=== PATIENT | male | born 1975 | race Caucasian/White ===

== ENCOUNTER 2023-11-06 03:33 | Emergency (ER) | payer OTHER, SELFPAY ==
[2023-11-06 03:35] VITALS: BP 126/84
[2023-11-06 04:50] VITALS: BMI 30.8
--- NOTE | 2023-11-06 04:58 | ED.GENMED ---
History of Present Illness
General
Chief Complaint: Back Pain
Source: patient
Exam Limitations: none
Time Seen by Provider: 11/06/23 04:52
Nursing documentation reviewed up to this point in time: agreed with
History of Present Illness
History of Present Illness:
This is a 48-year-old gentleman who has history of intermittent low back pain with acute lumbar sprain approximately 1 month ago, resolved with a course of prednisone and Flexeril.
Last night however he was wrestling with a friend and states he 'got flipped over onto his back' and developed abrupt severe left low back pain that has persisted throughout the night, unrelieved with 1 Flexeril at 1:30 AM. Left low back pain
occasionally shoots down his left posterior thigh. He denies weakness nor numbness, no saddle anesthesia, no difficulty moving her bowels or bladder.
He has driven himself to the ED.
He did note mild posterior neck discomfort which has resolved. No arm pain.
Past History
Past History
ED Past Medical History: GERD and Other (Chronic fatigue syndrome)
ED Past Surgical History: Other (Eye surgery)
Social History
Tobacco: Non-smoker
Alcohol: None
Drug: None
Living: with family
Employment: Employed
Family History
Family History: Other (Noncontributory)
Phy Exam
Physical Exam
Physical Exam:
GENERAL: 48-year-old gentleman appears his stated age. Sitting on the edge of the stretcher, resistant to move, appears in moderate distress related to pain. Easily communicative. Vital signs within normal limits.
EYE: anicteric
NECK: Supple, no midline bony tenderness. Full range of motion without difficulty nor pain. no significant adenopathy.
ENT: posterior pharynx is clear, oral mucosa is moist. No rhinorrhea.
CARDIAC: Regular rate and rhythm. no murmur.
LUNGS: Clear breath sounds bilaterally, no acute respiratory distress, no wheezes/rales/rhonchi
ABDOMEN: Soft, nondistended, without focal tenderness, no r/g, no cvat. normoactive BS.
BACK: No midline bony tenderness. There is moderate tenderness left lower lumbar paravertebral region with moderate palpable muscle spasm left lower lumbar region. Moderately restricted lumbar range of motion related to pain. There is no
tenderness to the SI joint bilaterally.
NEUROLOGICAL: Alert and oriented x3, no focal neuro deficits.
SKIN: Warm and dry, normal color, skin intact. No rash.
MUSCULOSKELETAL: No C/C/E. peripheral pulses are full and equal b/l. No palpable tenderness.
PSYCH: Normal and appropriate interaction.
Course
Orders/Labs/Results
Orders:
Orders
11/06/23 04:57
Ketorolac [Toradol] 60 mg IM NOW STA
Lumbar Spine Complete, 4 View [CR Lumbar Spine Comp Min 4 Vw*] Urgent
Comment:
Reason For Exam: acute left LBP after fall
11/06/23 06:08
Oxycodone/Acetaminophen [Percocet 5/325] 1 tablet PO NOW STA
diazePAM [Valium Injection] 10 mg IM NOW STA
Vital Signs
Initial and Last Documented VS:
Initial Vital Signs
Temp Pulse Resp BP Pulse Ox
97.8 F 80 24 126/84 100
11/06/23 03:35 11/06/23 03:35 11/06/23 03:35 11/06/23 03:35 11/06/23 03:35
Last Documented Vital Signs
Temp Pulse Resp BP Pulse Ox
97.8 F 58 18 133/93 95
11/06/23 03:35 11/06/23 06:38 11/06/23 06:38 11/06/23 06:38 11/06/23 06:38
MDM/Problems Addressed
Differential Diagnosis Includes:
Patient presents with acute left lower lumbar sprain/strain. Concern for occult fracture, acute sciatica.
No red flags in history nor exam.
Will give an IM dose of Toradol for pain and will check lumbar spine x-rays.
*Radiology
Radiology exam reviewed: preliminary read by ED provider (Lumbar spine film is unremarkable. No evidence of fracture.)
*Pulse Oximetry
Patient hypoxic: no
*Critical Care Note
Total Time (30-74mins, 75-104mins- exclusive of procedures): Not Applicable
Update Note
Update Note:
11/06/2023 0726 AM
Patient feeling improved after IM Toradol, Valium and an oral dose of Percocet.
Able to rest comfortably.
Lumbar spine x-ray is unremarkable.
Will discharge to home with recommendations to rest, apply local ice for the first 24 to 48 hours then switch to heat.
Will prescribe short course of diclofenac for pain as well as Percocet for moderate pain. Recommend he continue Flexeril at bedtime.
Prompt follow-up with PCP for recheck.
ED Attending Note
-
Portions of this chart may have been created with voice recognition software.� Occasional wrong word or��sound alike� substitutions may have occurred due to the inherent limitations of voice recognition software.
Discharge Plan
Departure
Patient Disposition: Home (Routine Discharge)
Date of Disposition: 11/06/23
Time of Disposition: 07:27
Patient with high blood pressure during this ER visit?: No
Condition: Good
Discharge Problem:
Acute lumbosacral myofascial strain
Instructions: Low back pain in adults
Prescriptions:
New
oxycodone-acetaminophen [Percocet] 5-325 mg Tablet
1 tab PO Q6HPRN PRN (Reason: pain) Qty: 10 0RF
diclofenac sodium 75 mg tablet,delayed release (DR/EC)
75 mg PO BID PRN (Reason: pain) Qty: 30 0RF
No Action
carisoprodol 350 MG tablet
350 mg PO HS
ranitidine HCl [Zantac] 300 MG tablet
300 mg PO BID
dextroamphetamine sulfate [Zenzedi] 15 MG tablet
15 mg PO TID
polyethylene glycol 3350 17 GRAMS powder in packet
17 grams PO DAILY Qty: 14 0RF
Referrals:
PRIVATE,PHYSICIAN [Family Provider] - Call in 1-3 days for appt
Interventions
Interventions:
*Risk Screen - Suicide Last Done: 11/06/23 03:35
*General Assessment Last Done: 11/06/23 04:50
*Neglect/Abuse Screening Last Done: 11/06/23 03:35
ED- Fall Risk Assessment Last Done: 11/06/23 04:50
ED-Musculoskeletal Assessment Last Done: 11/06/23 04:50
Discharge Date and Time
Print Language: ESTONIAN
[2023-11-06] MEDS: TORADOL 60 MG IM (05:20)
[2023-11-06] MEDS: PERCOCET 5/325 1 TABLET PO (06:25)
[2023-11-06] MEDS: VALIUM INJECTION 10 MG IM (06:26)
[2023-11-06 06:38] VITALS: BP 133/93
[2023-11-06 08:09] VITALS: BP 119/79
== END 2023-11-06 08:11 | disposition home or self-care (01) ==
LOC: EMR 03:33
PROVIDERS: EMERGENCY PHYSICIAN Emergency Medicine
DX: S39.012A Strain of muscle, fascia and tendon of lower back, initial encounter (principal); X50.1XXA Overexertion from prolonged static or awkward postures, initial encounter
CPT/HCPCS: 99284; 96372 ×2; 72110

== ENCOUNTER 2023-11-17 18:10 | Emergency (ER) | payer OTHER, SELFPAY ==
[2023-11-17 18:13] VITALS: BP 125/86
[2023-11-17 18:38] VITALS: BMI 30.2
--- NOTE | 2023-11-17 18:41 | ED.GENMED ---
History of Present Illness
General
Chief Complaint: Back Pain
Time Seen by Provider: 11/17/23 18:26
History of Present Illness
History of Present Illness:
48-year-old male presents the emergency department for evaluation of intractable low back pain radiating down the left leg. He was seen for this approximately 10 days ago and treated with opiates for pain as well as NSAIDs. He states he has
transient relief with medications but the symptoms immediately recur when the medication wears off. No loss of bladder or bowel function or saddle anesthesias. No fevers or chills
Past History
Past History
ED Past Medical History: GERD and Other (Chronic fatigue syndrome)
ED Past Surgical History: Other (Eye surgery)
Social History
Tobacco: Non-smoker
Alcohol: None
Drug: None
Living: with family
Employment: Employed
Family History
Family History: Other (Noncontributory)
Review of Systems
Review of Systems
Allergies reviewed?: Yes
All Other Systems: ROS reviewed and negative except as documented in HPI and ROS
Phy Exam
Physical Exam
Physical Exam:
GEN: Well appearing, NAD, WDWN
HEENT: Oral mucosa moist, no scleral icterus
Cardiac: Regular rate
Lung: No respiratory distress, no tachypnea
MSK: No gross deformity or injuries
Skin: Good color, no pallor or jaundice, no rashes
Neuro: AO x3, moves all extremities freely, bilateral lower extremity strength 5/5, patellar reflexes 2+
Psych: Calm, cooperative
Course
Orders/Labs/Results
Orders:
Orders
11/17/23 18:40
Diazepam [Valium] 5 mg PO NOW STA
Ketorolac [Toradol] 30 mg IM NOW STA
Lidocaine [Lidocaine 4% Patch] 1 patch TOPICAL NOW STA
Apply Lidocaine patch(s) to:: low back
11/17/23 19:37
Oxycodone [Roxicodone] 5 mg PO NOW STA
Vital Signs
Initial and Last Documented VS:
Initial Vital Signs
Temp Pulse Resp BP Pulse Ox
98.6 F 77 18 125/86 97
11/17/23 18:13 11/17/23 18:13 11/17/23 18:13 11/17/23 18:13 11/17/23 18:13
Last Documented Vital Signs
Temp Pulse Resp BP Pulse Ox
98.6 F 72 15 120/88 100
11/17/23 18:13 11/17/23 20:00 11/17/23 20:00 11/17/23 20:00 11/17/23 20:00
MDM/Problems Addressed
MDM/Problems Addressed:
A lengthy discussion with the patient regarding pain control measures. He has had 2 courses of steroids over the past month thus I do not feel this is appropriate to represcribe him steroids. He cannot see his primary care physician until
December and I have advised him to consider an alternative primary care, [place] vice president of instruction to see clinic would be an option. Encouraged him to follow-up with pain and spine as well
*Critical Care Note
Total Time (30-74mins, 75-104mins- exclusive of procedures): Not Applicable
ED Attending Note
-
Portions of this chart may have been created with voice recognition software.� Occasional wrong word or��sound alike� substitutions may have occurred due to the inherent limitations of voice recognition software.
Discharge Plan
Departure
Patient Disposition: Home (Routine Discharge)
Date of Disposition: 11/17/23
Time of Disposition: 20:42
Patient with high blood pressure during this ER visit?: No
Discharge Problem:
Acute left lumbar radiculopathy
Instructions: Radiculopathy (DC)
Prescriptions:
New
oxycodone 10 mg tablet
10 mg PO Q8H PRN (Reason: Pain) Qty: 10 0RF
gabapentin 300 mg capsule
300 mg PO TID Qty: 30 0RF
diazepam 2 mg tablet
2 mg PO BID PRN (Reason: anxiety) Qty: 6 0RF
No Action
carisoprodol 350 MG tablet
350 mg PO HS
ranitidine HCl [Zantac] 300 MG tablet
300 mg PO BID
dextroamphetamine sulfate [Zenzedi] 15 MG tablet
15 mg PO TID
polyethylene glycol 3350 17 GRAMS powder in packet
17 grams PO DAILY Qty: 14 0RF
oxycodone-acetaminophen [Percocet] 5-325 mg Tablet
1 tab PO Q6HPRN PRN (Reason: pain) Qty: 10 0RF
diclofenac sodium 75 mg tablet,delayed release (DR/EC)
75 mg PO BID PRN (Reason: pain) Qty: 30 0RF
Referrals:
Naun Cisneros MD [Active] -
UNKNOWN - PT DOES,NOT KNOW [Family Provider] -
Interventions
Interventions:
*Risk Screen - Suicide Last Done: 11/17/23 18:38
*General Assessment Last Done: 11/17/23 18:38
*Neglect/Abuse Screening Last Done: 11/17/23 18:38
*Nursing Disposition Last Done: 11/17/23 20:56
ED-Musculoskeletal Assessment Last Done: 11/17/23 18:38
Discharge Date and Time
Discharge Date/Time: 11/17/23 20:57
Print Language: MARSHALLESE
[2023-11-17] MEDS: LIDOCAINE 4% PATCH 1 PATCH TOPICAL (18:50)
[2023-11-17] MEDS: TORADOL 30 MG IM (18:50)
[2023-11-17] MEDS: VALIUM 5 MG PO (18:50)
[2023-11-17] MEDS: ROXICODONE 5 MG PO (19:45)
[2023-11-17 20:00] VITALS: BP 120/88
== END 2023-11-17 20:57 | disposition home or self-care (01) ==
LOC: EMR 18:10
PROVIDERS: EMERGENCY PHYSICIAN Emergency Medicine
DX: M54.16 Radiculopathy, lumbar region (principal)
CPT/HCPCS: 99284; 96372